=== PATIENT | female | born 1950 | race African-American/Black ===

== ENCOUNTER 2017-01-15 14:58 | Emergency (ER) | payer OTHER ==
[~2017-01-15 14:58] MED LIST: ALBUTEROL INH; ALPRAZOLAM0.25 M3 PO; ALPRAZOLAM0.25 MG PO; ANTIVERT25 M1 PO; ANTIVERT25 MG PO; ARTIFICIAL TEAR15 M3 OP; ASMANEX0.135 G1 IH; ASPIR 8181 MG PO; ASPIRIN81 M1 PO; ATENOLOL100 MG PO; ATENOLOL25 MG PO; ATORVASTATIN CA80 M1 PO; BABY ASPIRIN81 MG PO; CALCIUM 500 +1 EAC2 PO; CALCIUM 500 +1 EAC4 PO; CLOPIDOGREL75 M1 PO; CYCLOBENZAPRINE10 M1 PO; CYCLOBENZAPRINE10 MG PO; DOCUSATE SODIU100 M2 PO; DOXYCYCLINE HY100 MG PO; ERYTHROMYCIN OPH1 GM OP; FLOVENT RO50 MCG/DIS IH; GUAIFENESIN400 M1 PO; GUAIFENESIN400 MG PO; INDERAL20 MG PO; LORTAB 5/5001 EA PO; MECLIZINE HCL25 M3 PO; METFORMIN HCL500 M2 PO; METFORMIN HCL500 MG PO; NAPROXEN500 M1 PO; NAPROXEN500 MG PO; NICOTINE PATCH1 EAC2 TD; OATMEAL BATH TP; PRILOSEC20 M1 PO; ROBITUSSIN-DM5 M1 PO; SIMVASTATIN40 MG PO; SIMVASTATIN80 MG PO; SYNTHROID100 MCG PO; SYNTHROID75 MC1 PO; TENORMIN25 MG PO; TRAZODONE HCL50 M1 PO; VITAMIN D-1000 UNIT/ PO; VITAMIN D31000 UNIT PO; WELLBUTRIN75 MG PO; XANAX0.25 MG PO; XOPENEX HFA15 GM IH; ZESTRIL10 M3 PO; ZOCOR80 M1 PO; ZYRTEC1010 PO
[2017-01-15] MEDS ORDERED: TYLENOL325 M2 PO (18:08)
[2017-01-15] MEDS ORDERED: PROAIR RESPICL90 MCG PO (18:09)
[2017-01-15] MEDS ORDERED: VITAMIN D31000 UNI3 PO (18:10)
[2017-01-15] MEDS ORDERED: SYMBICORT 80-41 PUFF INH (18:10)
[2017-01-15] MEDS ORDERED: LIPITOR80 M1 PO (18:10)
[2017-01-15] MEDS ORDERED: FLONASE ALLERG9.9 ML (18:11)
[2017-01-15] MEDS ORDERED: NICOTINE PATCH1 EACH TP (18:13)
[2017-01-15 18:45] LABS: BASO % 0.3 % (0-2); EOS % 2.2 % (0-7); EOSINOPHIL ABSOLUTE COUNT 0.2 tho/cmm (0.0-0.7); HCT-HEMATOCRIT 42.5 % (34.0-49.0); HGB-HEMOGLOBIN 14.1 gm/dl (12.0-15.5); IMMATURE GRANULOCYTES ABSOLUTE 0.01 tho/cmm (0-0.03); IMMATURE GRANULOCYTES PERCENT 0.1 % (0-0.3); LYMPH % 33.4 % (20-45); LYMPH ABSOLUTE COUNT 2.6 tho/cmm (0.8-4.5); MCH (MEAN CORPUSCULAR HGB) 29.5 pg (28.0-32.0); MCHC MEAN CORPUSCULAR HGB CONC 33.2 % (32.0-36.0); MCV (MEAN CELL VOLUME) 88.9 fl (82.0-96.0); MEAN PLATELET VOLUME 8.9 cmc (9.4-12.4); MONO % 6.2 % (0-12); MONOCYTE ABSOLUTE COUNT 0.5 tho/cmm (0.0-1.2); NEUTROPHIL ABSOLUTE COUNT 4.4 tho/cmm (1.6-8.0); NEUTROPHIL-AUTOMATED 4.4 tho/cmm (1.6-8.0); NEUTROPHILS % 57.8 % (40-80); PLATELET COUNT 334 tho/cmm (150-450); RED BLOOD COUNT 4.78 mil/cmm (4.00-5.20); RED CELL DISTRIBUTION WIDTH 13.1 % (12.4-16.4); WHITE BLOOD COUNT 7.7 tho/cmm (4.0-10.0)
[2017-01-15 19:03] LABS: ALBUMIN 3.7 g/dl (3.5-5.0); ALKALINE PHOSPHATASE 80 U/L (33-138); ALT/SGPT 21 U/L (12-78); ANION GAP 14 mmol/L (0-20); AST/SGOT 14 U/L (10-40); BILIRUBIN,DIRECT <0.1 mg/dl (0.0-0.3); BILIRUBIN,INDIRECT 0.3 mg/dL (0.0-1.0); BILIRUBIN,TOTAL 0.4 mg/dl (0-1.5); BLOOD UREA NITROGEN 13 mg/dl (6-24); CALCIUM 9.1 mg/dl (8.5-10.5); CARBON DIOXIDE-VENOUS 25 mmol/L (22-32); CHLORIDE 106 mmol/l (96-110); CREATININE 0.82 mg/dl (0.50-1.10); GLUCOSE 127 mg/dL (70-110); LIPASE 153 U/L (73-393); POTASSIUM 3.7 mmol/L (3.7-5.1); SODIUM 141 mmol/L (135-145); eGFR VALUE FOR BLACK 86 mL/Min
[2017-01-15 19:52] LABS: URINE BILIRUBIN NEGATIVE (NEG); URINE BLOOD NEGATIVE (NEG); URINE GLUCOSE (UA) NEGATIVE (NEG); URINE KETONE NEGATIVE (NEG); URINE LEUKOCYTE ESTERASE NEGATIVE (NEG); URINE NITRITE NEGATIVE (NEG); URINE PROTEIN NEGATIVE (NEG)
[2017-01-15 19:53] LABS: URINE APPEARANCE CLEAR; URINE COLOR YELLOW
[2017-01-15] MEDS ORDERED: ZOFRAN ODT4 MG PO (21:06)
[2017-01-15] MEDS ORDERED: OXYCODONE-ACET1 EAC3 PO (21:06)
== END 2017-01-15 21:40 ==
LOC: EDMED 14:58
PROVIDERS: Emergency Medicine
DX: K63.89 Other specified diseases of intestine (principal); E03.9 Hypothyroidism, unspecified; K21.9 Gastro-esophageal reflux disease without esophagitis; Z87.11 Personal history of peptic ulcer disease; Z86.73 Personal history of transient ischemic attack (TIA), and cerebral infarction without residual deficits; Z87.19 Personal history of other diseases of the digestive system; Z90.49 Acquired absence of other specified parts of digestive tract; Z90.89 Acquired absence of other organs; Z98.890 Other specified postprocedural states; Z79.82 Long term (current) use of aspirin; Z79.890 Hormone replacement therapy; Z79.899 Other long term (current) drug therapy; F17.210 Nicotine dependence, cigarettes, uncomplicated
CPT/HCPCS: J1170; J2405; J7030; Q9967